=== PATIENT | male | born 2000 | race Hispanic/Latino ===

== ENCOUNTER → 2024-03-14 | Day surgery (SDC) | payer OTHER ==
[~2024-03-14] MED LIST: AMOXICILLIN500 MG PO; CLARITHROMYCIN500 MG PO; FENTANYL CITRATE/PF 100MCG/2 ML INJ ONE; GLYCOPYRROLATE INJ 0.2 MG/ML VIAL ONE; LANSOPRAZOLE30 MG PO; LIDOCAINE HCL 2% LOCAL INJ 5 ML SDV VIAL INJ ONE; MIDAZOLAM HCL 2 MG/2 ML VIAL ONE; PROPOFOL IV EMULSION 10 MG/ML 20 ML VIAL ONE
[2024-03-14] MEDS: LACTATED RINGER'S 1,000 ML ONE (07:45)
[2024-03-14 11:22] VITALS: TEMP 97
[2024-03-14 11:42] VITALS: BP 126/86; PULSE 66; RESP 18; O2SAT 100
== END | disposition home or self-care (01) ==
LOC: OR 07:28
PROVIDERS: ATTEND Internal Medicine Gastroenterology
DX: K21.9 Gastro-esophageal reflux disease without esophagitis (principal); K29.50 Unspecified chronic gastritis without bleeding; K31.89 Other diseases of stomach and duodenum; R13.10 Dysphagia, unspecified; K44.9 Diaphragmatic hernia without obstruction or gangrene; A04.8 Other specified bacterial intestinal infections; R19.7 Diarrhea, unspecified; R63.4 Abnormal weight loss; E78.5 Hyperlipidemia, unspecified; J45.909 Unspecified asthma, uncomplicated
CPT/HCPCS: 43239; J2003; J2250; J2704; J3010; J7121